=== PATIENT | male | born 1990 ===

== ENCOUNTER 2020-02-24 14:28 | Emergency (ER) | payer SELFPAY ==
[~2020-02-24] VITALS: Ht 162.6 cm; Wt 63.2 kg
[2020-02-24 14:43] VITALS: BP 111/77
[2020-02-24] MEDS ORDERED: PERM60CR19 TP (15:22)
== END 2020-02-24 15:30 | disposition home or self-care (01) ==
LOC: ER 14:29
DX: B86 Scabies (principal); M79.672 Pain in left foot; M79.671 Pain in right foot; Z88.0 Allergy status to penicillin; Z79.899 Other long term (current) drug therapy
CPT/HCPCS: 99283